=== PATIENT | female | born 1960 | race Caucasian/White ===

== ENCOUNTER 2024-02-29 09:03 | Outpatient (CLI) | payer MEDICARE, BC | END 2024-02-29 09:04 | disposition home or self-care (01) | LOC: CSHMAMMO 09:03 | PROVIDERS: ATTEND Internal Medicine | DX: Z12.31 Encounter for screening mammogram for malignant neoplasm of breast (principal); N64.89 Other specified disorders of breast | CPT/HCPCS: 77067 ==

== ENCOUNTER 2024-03-02 11:55 | Outpatient (CLI) | payer MEDICARE, BC | END 2024-03-02 11:56 | disposition home or self-care (01) | LOC: CSHULT 11:55 | PROVIDERS: ATTEND Internal Medicine | DX: E04.1 Nontoxic single thyroid nodule (principal) | CPT/HCPCS: 76536 ==

== ENCOUNTER 2024-03-13 08:51 | Outpatient (CLI) | payer MEDICARE, BC | END 2024-03-13 08:52 | disposition home or self-care (01) | LOC: CSHMAMMO 08:51 | PROVIDERS: ATTEND Internal Medicine | DX: N64.89 Other specified disorders of breast (principal) | CPT/HCPCS: 77065; G0279 ==

== ENCOUNTER 2025-03-12 08:57 | Outpatient (CLI) | payer MEDICARE, BC | END 2025-03-12 08:58 | disposition home or self-care (01) | LOC: CSHMAMMO 08:57 | PROVIDERS: ATTEND Internal Medicine | DX: Z12.31 Encounter for screening mammogram for malignant neoplasm of breast (principal) | CPT/HCPCS: 77063; 77067 ==